=== PATIENT | female | born 1970 | race Caucasian/White ===

== ENCOUNTER 2017-11-03 19:00 | Emergency (ER) | payer BC ==
[2017-11-03 20:12] VITALS: BP 101/64
[2017-11-03] MEDS ORDERED: Cephalexin CAP* 500 MG PO ONE (20:45)
--- NOTE | 2017-11-03 20:54 | UC ---
Ear Complaint HPI - HPI Summary HPI Summary: THREE DAYS OF WORSENING COUGH, SORE THROAT AND RIGHT EAR PAIN. HISTORY OF FREQUENT OTITIS MEDIA AND SINUS INFECTIONS. - History of Current Complaint Chief Complaint: UCGeneralIllness Stated Complaint: THROAT,EAR COMPLAINT Time Seen by Provider: 11/03/17 20:39 Hx Obtained From: Patient Hx Last Menstrual Period: 5 yrs Onset/Duration: Gradual Onset, Lasting Days Severity Initially: Mild Severity Currently: Moderate Associated Signs/Symptoms: Positive: URI Symptoms - Allergies/Home Medications Allergies/Adverse Reactions: Allergies Allergy/AdvReac Type Severity Reaction Status Date / Time Morphine Allergy Severe lowers BP Verified 11/03/17 20:12 Adhesive Tape Allergy Hives Verified 11/03/17 20:12 Amoxicillin Allergy Rash Verified 11/03/17 20:12 Home Medications: Home Medications Aspirin [Aspirin 81 MG TAB] 81 mg PO DAILY 11/03/17 [History Confirmed 11/03/17] Ibuprofen TAB* [Motrin TAB* 600 MG] 600 mg PO Q8H PRN 11/03/17 [History Confirmed 11/03/17] Rosuvastatin Calcium [Crestor] 20 mg PO DAILY 11/03/17 [History Confirmed ] PMH/Surg Hx/FS Hx/Imm Hx Previously Healthy: Yes - Surgical History Surgical History: Yes Surgery Procedure, Year, and Place: Herniorrhaphy, 10/03/14, [facility]; Appendectomy , 08/07/14, [facility]; Mini ARC Bladder, 2010, [facility], Novasure Ablation, 2009, ; Tubal Ligation, 1997, [facility] - Family History Known Family History: Positive: Cardiac Disease, Hypertension - Social History Occupation: Employed Full-time Lives: With Family Alcohol Use: Rare Substance Use Type: None Smoking Status (MU): Heavy Every Day Tobacco Smoker Type: Cigarettes Amount Used/How Often: 1 PPD Length of Time of Smoking/Using Tobacco: 34 Years Have You Smoked in the Last Year: Yes Household Exposure Type: Cigarettes Cessation Counseling: Patient Advised to Stop - Immunization History Most Recent Influenza Vaccination: Not the 2014/2015 Season Review of Systems Constitutional: Negative Skin: Negative Eyes: Negative ENT: Ear Ache, Sinus Congestion, Sinus Pain/Tenderness Respiratory: Cough Cardiovascular: Negative Gastrointestinal: Negative Genitourinary: Negative Motor: Negative Neurovascular: Negative Musculoskeletal: Negative Neurological: Negative Psychological: Negative Is Patient Immunocompromised?: No All Other Systems Reviewed And Are Negative: Yes Physical Exam Triage Information Reviewed: Yes Appearance: No Pain Distress, Well-Nourished, Ill-Appearing - MILDLY Vital Signs: Initial Vital Signs Temp 98.4 F 11/03/17 20:08 Pulse 69 11/03/17 20:08 Resp 17 11/03/17 20:08 BP 101/64 11/03/17 20:08 Pulse Ox 98 11/03/17 20:08 Vital Signs Reviewed: Yes Eye Exam: Normal ENT: Positive: Hearing grossly normal, Pharynx normal, Nasal congestion, TM red - RIGHT TM Dental Exam: Normal Neck exam: Normal Respiratory Exam: Normal Respiratory: Positive: Chest non-tender, Lungs clear, Normal breath sounds, No respiratory distress Cardiovascular Exam: Normal Cardiovascular: Positive: RRR, No Murmur, Pulses Normal Abdominal Exam: Normal Abdomen Description: Positive: Nontender, No Organomegaly Musculoskeletal Exam: Normal Neurological Exam: Normal Psychological Exam: Normal Skin Exam: Normal Ear Complaint Course/Dx - Differential Dx/Diagnosis Differential Diagnosis/HQI/PQRI: Otitis Externa, Otitis Media, URI Provider Diagnoses: RIGHT OTITIS MEDIA; SINUSITIS Discharge - Discharge Plan Condition: Stable Disposition: HOME Prescriptions: Cephalexin CAP* [Keflex CAP*] 500 mg PO TID #30 cap Patient Education Materials: Sinusitis (ED), Otitis Media (ED) Referrals: Alyssa Burns PA [Primary Care Provider] -
== END 2017-11-03 20:51 | disposition home or self-care (01) ==
LOC: UCCORT 19:00
DX: H66.91 Otitis media, unspecified, right ear (principal); J32.9 Chronic sinusitis, unspecified; Z88.1 Allergy status to other antibiotic agents; Z88.5 Allergy status to narcotic agent; Z91.048 Other nonmedicinal substance allergy status; F17.210 Nicotine dependence, cigarettes, uncomplicated
CPT/HCPCS: 99212; A9270-GY; G0463

== ENCOUNTER 2018-02-28 07:02 | Emergency (ER) | payer BC ==
[2018-02-28 07:20] VITALS: BP 122/67
[2018-02-28] MEDS ORDERED: cefTRIAXone VIAL(*) 1,000 MG VIAL IM ONE (07:51)
[2018-02-28] MEDS ORDERED: Lidocaine 1% MPF* 2 ML VIAL INJ ONE (07:52)
--- NOTE | 2018-02-28 07:58 | UC ---
Skin Complaint HPI - HPI Summary HPI Summary: Lip swelling and facial pain on the left. On monday she had a small "pimple" and then this has progressed to lip swelling and facial swelling. She is a DM with fairly well controlled sugars per patient. She has never had MRSA or skin infections per patient. No fevers or chills. - History of Current Complaint Chief Complaint: UCSkin Time Seen by Provider: 02/28/18 07:47 Stated Complaint: LEFT LIP/FACE COMPLAINT Hx Obtained From: Patient Hx Last Menstrual Period: 5 yr Onset/Duration: Gradual Onset, Lasting Days Skin Exposure Onset/Duration: Days Ago Onset Severity: Mild Current Severity: Moderate Pain Intensity: 10 Location: Discrete, Face Character: Swelling, Pain, Redness, Raised, Painful Aggravating Factor(s): Touch Alleviating Factor(s): Nothing Associated Signs & Symptoms: Positive: Tenderness. Negative: Nausea, Vomiting, Numbness, Shivering, Fever, Chills, Cough - Allergy/Home Medications Allergies/Adverse Reactions: Allergies Allergy/AdvReac Type Severity Reaction Status Date / Time Adhesive Tape Allergy Hives Verified 02/28/18 07:13 amoxicillin Allergy Rash Verified 02/28/18 07:13 atorvastatin [From Lipitor] Allergy Muscle Ache Verified 02/28/18 07:13 morphine AdvReac See Comment Verified 02/28/18 07:13 Home Medications: Home Medications FLUoxetine CAP* [PROzac CAP*] 40 mg PO DAILY 02/28/18 [History Confirmed ] Famotidine TAB* [Pepcid 20 MG TAB*] 40 mg PO QPM 02/28/18 [History Confirmed 03/14] Linaclotide [Linzess] 145 mcg PO QAM 02/28/18 [History Confirmed 02/28/18] Review of Systems Skin: Other - tender skin. All Other Systems Reviewed And Are Negative: Yes PMH/Surg Hx/FS Hx/Imm Hx Previously Healthy: No - DM. - Surgical History Surgical History: Yes Surgery Procedure, Year, and Place: Herniorrhaphy, 10/03/14, [facility]; Appendectomy , 08/07/14, [facility]; Mini ARC Bladder, 2010, [facility], Novasure Ablation, 2009, ; Tubal Ligation, 1997, [facility] - Family History Known Family History: Positive: Cardiac Disease, Hypertension - Social History Alcohol Use: Occasionally Substance Use Type: None Smoking Status (MU): Heavy Every Day Tobacco Smoker Type: Cigarettes Amount Used/How Often: 1 PPD Length of Time of Smoking/Using Tobacco: 34 Years Have You Smoked in the Last Year: Yes Household Exposure Type: Cigarettes - Immunization History Most Recent Influenza Vaccination: Not the Season Physical Exam Triage Information Reviewed: Yes Appearance: Well-Appearing, No Pain Distress, Well-Nourished Vital Signs: Initial Vital Signs Temp 97.9 F 02/28/18 07:14 Pulse 63 02/28/18 07:14 Resp 20 02/28/18 07:14 BP 122/67 02/28/18 07:14 Pulse Ox 99 02/28/18 07:14 Vital Signs Reviewed: Yes Eyes: Positive: Conjunctiva Clear ENT: Positive: Pharynx normal - edentulous but no gum or jaw swelling. Neck: Positive: Supple, Nontender, No Lymphadenopathy Respiratory: Positive: Lungs clear, Normal breath sounds, No respiratory distress, No accessory muscle use. Negative: Respiratory distress, Decreased breath sounds, Accessory muscle use, Crackles, Rhonchi, Stridor, Wheezing Cardiovascular: Positive: No Murmur, Pulses Normal, Brisk Capillary Refill Abdomen Description: Positive: No Organomegaly, Soft. Negative: Distended, Guarding Musculoskeletal: Positive: Strength Intact, ROM Intact, No Edema Neurological: Positive: Alert, Muscle Tone Normal. Negative: Fatigued Skin Exam: Other - Left upper lip swelling and tenderness along with some pinkness of the maxilla. There is no induration or swelling of the skin of the maxilla. Course/Dx - Course Course Of Treatment: Cellulitis. She agrees to return for any worsening. - Diagnoses Provider Diagnoses: left facial cellulitis. Discharge - Sign-Out/Discharge Documenting (check all that apply): Discharge - Discharge Plan Condition: Good Disposition: HOME Prescriptions: Sulfamethox/Trimethoprim DS* [Bactrim DS 800/160 TAB*] 2 tab PO BID #40 tab Patient Education Materials: Cellulitis (ED) Referrals: Alyssa Burns PA [Primary Care Provider] - - Billing Disposition and Condition Condition: GOOD Disposition: HOME
== END 2018-02-28 08:29 | disposition home or self-care (01) ==
LOC: UCCORT 07:02
DX: L03.211 Cellulitis of face (principal); E11.9 Type 2 diabetes mellitus without complications; F17.210 Nicotine dependence, cigarettes, uncomplicated; Z88.3 Allergy status to other anti-infective agents; Z88.5 Allergy status to narcotic agent; Z88.8 Allergy status to other drugs, medicaments and biological substances
CPT/HCPCS: 96372; 99212; G0463; J0696

== ENCOUNTER 2018-05-25 07:50 | Emergency (ER) | payer BC ==
[2018-05-25 08:09] VITALS: BP 128/75
--- NOTE | 2018-05-25 08:18 | UC ---
Complaint Female HPI - HPI Summary HPI Summary: Patient presents to with complaints of urinary frequency, urgency, and dysuria since yesterday. Patient with history of UTI states this feels similar. Patient has taken Pyridium and 7:00 this morning with mild improvement. Patient is followed closely by her primary for recurrent UTIs. Patient denies nausea vomiting. No fevers or chills. No back pain. No lightheadedness. Patient has not taken any other analgesia. Patient is not on prophylactically [place]. Patient states her last antibiotic was greater than 6 months ago. Patient denies possibility of . Patient denies vaginal discharge itching or odor. Patient's medications reviewed this visit. - History Of Current Complaint Chief Complaint: UCGU Stated Complaint: UTI SYMPTOMS Time Seen by Provider: 05/25/18 08:15 Hx Obtained From: Patient Hx Last Menstrual Period: pt had an ablasion in 2011 and does not get a menses ?: No Onset/Duration: Gradual Onset, Lasting Hours Timing: Constant Severity Initially: Moderate Severity Currently: Moderate Pain Intensity: 8 Pain Scale Used: 0-10 Numeric - Allergies/Home Medications Allergies/Adverse Reactions: Allergies Allergy/AdvReac Type Severity Reaction Status Date / Time Adhesive Tape Allergy Hives Verified 05/25/18 08:09 amoxicillin Allergy Rash Verified 05/25/18 08:09 atorvastatin [From Lipitor] Allergy Muscle Ache Verified 05/25/18 08:09 morphine AdvReac See Comment Verified 05/25/18 08:09 Home Medications: Home Medications Phenazopyridine TAB* [Pyridium 100 mg TAB*] 100 mg PO TID PRN 05/25/18 [History Confirmed 05/25/18] PMH/Surg Hx/FS Hx/Imm Hx Previously Healthy: Yes GI/ History: Other Other GI/ History: recurrent UTIs - Surgical History Surgical History: Yes Surgery Procedure, Year, and Place: Herniorrhaphy, 10/03/14, [facility]; Appendectomy , 08/07/14, [facility]; Mini ARC Bladder, 2010, [facility], Novasure Ablation, 2009, ; Tubal Ligation, 1997, [facility] - Family History Known Family History: Positive: Cardiac Disease, Hypertension - Social History Occupation: Employed Full-time Lives: With Family Alcohol Use: Occasionally Substance Use Type: None Smoking Status (MU): Heavy Every Day Tobacco Smoker Type: Cigarettes Amount Used/How Often: 1 PPD Length of Time of Smoking/Using Tobacco: since age 13 Have You Smoked in the Last Year: Yes Household Exposure Type: Cigarettes - Immunization History Most Recent Influenza Vaccination: Not the 2014/2015 Season Review of Systems Constitutional: Negative Genitourinary: Dysuria, Frequency, Urgency All Other Systems Reviewed And Are Negative: Yes Physical Exam - Summary Physical Exam Summary: Vital Signs Reviewed: Yes A+Ox3, no distress Eyes: Conjunctiva Clear ENT: Hearing grossly normal neck: supple Respiratory: Positive: No respiratory distress, No accessory muscle use Cardiovascular: skin color reflect adequate perfusion abd: soft + BS no guarding, no rebound mild suprapubic discomfort no CVA b/l Musculoskeletal Exam: LEAHY x 4 without difficulty Neurological: Positive: Alert, ambulatory without difficulty Psychological: Positive: Normal Response To Family Skin: Positive: no rash, no ecchymosis Triage Information Reviewed: Yes Vital Signs: Initial Vital Signs Temp 97.8 F 05/25/18 08:00 Pulse 71 05/25/18 08:00 Resp 16 05/25/18 08:00 BP 128/75 05/25/18 08:00 Pulse Ox 98 05/25/18 08:00 Complaint Female Dx - Course Course Of Treatment: Patient presents with urinary symptoms including dysuria frequency and urgency. Patient has a current UTIs. Patient took Pyridium so unable to send urinalysis. Will send urine culture. Will start Macrobid. She has Pyridium. Patient requesting Diflucan for antibiotic related disinfection. - Differential Dx/Diagnosis Provider Diagnoses: dysuria Discharge - Sign-Out/Discharge Documenting (check all that apply): Discharge/Admit/Transfer - Discharge Plan Condition: Stable Disposition: HOME Prescriptions: Fluconazole [Diflucan 150 MG (NF)] 150 mg PO ONCE PRN #2 tab PRN Reason: vaginal yeast infection Nitrofurantoin Monohyd/M-Cryst [Macrobid 100 mg Capsule] 100 mg PO BID #14 cap Patient Education Materials: Urinary Tract Infection in Women (ED) Referrals: Alyssa Burns PA [Primary Care Provider] - Additional Instructions: - stay well hydrated - drink plenty of non-alcoholic, non caffinated beverages - your urine will be further tested - if you require any changes to your treatment, we will contact you - this usually take 2 days - Contact your primary doctor to arrange a follow-up appointment next week. Contact your doctor or return with questions or concerns - Take your antibiotics exactly as prescribed until gone - Take pyridium as prescribed for discomfort. This will make your urine blaze orange - this is normal - Okay to alternate ibuprofen (Advil, Motrin) and Tylenol every 3 hours for pain. Take with food - you have been given a prescription for diflucan - okay to use as needed for yeast infection - Call your doctor or return with questions or concerns - Billing Disposition and Condition Condition: STABLE Disposition: Home
--- NOTE | 2018-05-27 07:14 | UC ---
- Progress Note Progress Note: + E. Coli Pt on Macrobid await sensitivity Ljj 05/27/18 Discharge - Sign-Out/Discharge Documenting (check all that apply): Post-Discharge Follow Up - Discharge Plan Condition: Stable Disposition: HOME Prescriptions: Fluconazole [Diflucan 150 MG (NF)] 150 mg PO ONCE PRN #2 tab PRN Reason: vaginal yeast infection Nitrofurantoin Monohyd/M-Cryst [Macrobid 100 mg Capsule] 100 mg PO BID #14 cap Patient Education Materials: Urinary Tract Infection in Women (ED) Referrals: Alyssa Burns PA [Primary Care Provider] - Additional Instructions: - stay well hydrated - drink plenty of non-alcoholic, non caffinated beverages - your urine will be further tested - if you require any changes to your treatment, we will contact you - this usually take 2 days - Contact your primary doctor to arrange a follow-up appointment next week. Contact your doctor or return with questions or concerns - Take your antibiotics exactly as prescribed until gone - Take pyridium as prescribed for discomfort. This will make your urine blaze orange - this is normal - Okay to alternate ibuprofen (Advil, Motrin) and Tylenol every 3 hours for pain. Take with food - you have been given a prescription for diflucan - okay to use as needed for yeast infection - Call your doctor or return with questions or concerns - Billing Disposition and Condition Condition: STABLE Disposition: Home
== END 2018-05-25 08:36 | disposition home or self-care (01) ==
LOC: UCCORT 07:50
DX: Z16.11 Resistance to penicillins (principal); Z16.29 Resistance to other single specified antibiotic; R30.0 Dysuria; Z88.5 Allergy status to narcotic agent; Z88.0 Allergy status to penicillin; Z88.8 Allergy status to other drugs, medicaments and biological substances; Z87.440 Personal history of urinary (tract) infections; F17.210 Nicotine dependence, cigarettes, uncomplicated; B96.20 Unspecified Escherichia coli [E. coli] as the cause of diseases classified elsewhere
CPT/HCPCS: 87077; 87086; 87186; 99212; G0463

== ENCOUNTER 2019-07-03 13:44 | Emergency (ER) | payer BC ==
--- OUTSIDE RECORDS SUMMARY | 2019-07-03 13:57 | XMS REPORT | Continuity of Care Document ---
:1970 External Reference #:[id number] Author Name Dorene Myers Care Team Providers Name Role Alyssa Huang RPA Primary Care Physician Unavailable Payers Date Identification Numbers Payment Provider Subscriber Policy Number: [id number] [facility] Yaquelin Gillespie PayID: [id number] [address] [address] [place] [id number] Problems Active Problems Provider Date Diabetes mellitus Alyssa [place], [place] Onset: 03/01/2019 Note: noted 2012, gestational DM 1998 Cerebrovascular accident Alyssa [place], PA Onset: 03/01/2019 Note: tPA 08/2017 History of cerebrovascular accident without Alyssa [place], [place] Onset: 03/01 residual deficits Note: 08/2017 Obesity Alyssa [place], PA Onset: 03/01/2019 Mixed hyperlipidemia Alyssa [place], PA Onset: 03/01/2019 Steatosis of liver Alyssa [place], PA Onset: 03/01/2019 Note: elevated transaminases variable Gastritis Alyssa [place], PA Onset: 03/01/2019 Esophagitis Alyssa [place], PA Onset: 03/01/2019 Irritable bowel syndrome Alyssa [place], PA Onset: 03/01/2019 Umbilical hernia Alyssa [place], PA Onset: 03/01/2019 Hemangioma of liver Alyssa [place], PA Onset: 03/01/2019 Note: (+) scan 2012 Gastroesophageal reflux disease Alyssa [place], PA Onset: 03/01/2019 Polyp of colon Alyssa [place], PA Onset: 03/01/2019 Note: hyperplastic 2014 Dysthymia Alyssa [place], PA Onset: 03/01/2019 Vitamin D deficiency Alyssa [place], PA Onset: 03/01/2019 Cigarette smoker Alyssa [place], PA Onset: 03/01/2019 Chronic obstructive lung disease Alyssa [place], [place] Onset: 03/01/2019 Bladder muscle dysfunction - overactive Alyssa SHIREEN Burns Onset: 2018 Neck pain SHIREEN Sloan Onset: 04/18/2019 Degenerative joint disease involving multiple Alyssa BellevilleSHIREEN Onset: joints Note: knees, cervical spine Family History Date Family Member(s) Observation Comments Father Deep Venous Thrombosis (DVT) Father Hypercholesterolemia Mother Diabetes Mother Hypercholesterolemia Mother Thyroid Disease Social History Type Date Description Comments Sex Unknown Lives With Boyfriend Tobacco Use Start: Unknown 01/28 ppd ETOH Use Occasionally consumes alcohol Tobacco Use Start: Unknown Patient is a current smoker, smokes every day Smoking Status Reviewed: 05/16/19 Patient is a current smoker, smokes every day Exercise Type/Frequency Exercises sporadically walking Allergies, Adverse Reactions, Alerts Active Allergies Reaction Severity Comments Date Amoxicillin pruritis 02/18/2019 Penicillins Itching 02/18/2019 Adhesive contact dermatitis 02/18/2019 Morphine 02/18/2019 Acetaminophen / Caffeine 02/18/2019 NSAIDS dyspepsia 02/18/2019 Atorvastatin myalgias 02/18/2019 Pioglitazone vision changes 02/18/2019 Medications Active Medications SIG Qnty Indications Ordering Date Provider Doxycycline 1 by mouth twice a 20caps J01.90 06/11/2019 Monohydrate day MD Thang 100mg Capsules Vitamin D-1000 take four 90tabs 05/20/2019 Maximum Strength capsule/tablet daily MD Thang by mouth 1000Unit Tablets Gabapentin 2 tabs by mouth three 05/16/2019 300mg times a day MD Thang Capsules NicoretBob Soares, 05/15/2019 4mg Gum Tramadol HCL 1 to 2 tablets twice 30tabs M54.2 04/12/2019 50mg a day or three times MD Thang Tablets a day as needed pain Trulicity inject 1.5mg 6ml 03/15/2019 subcutaneously once MD Thang 1.5mg/0.5ML per week Solution Pen-Inject Nebulizer 1 unit nebulization 1units 02/18/2019 Kit/Tubing/Mouthpie every 4- 6 hours as MD Thang ce needed Kit Pantoprazole Sodium 1 tab by mouth twice 180tabs 02/18/2019 a day MD Thang 40mg Tablets DR Oxybutynin Chloride 1-2 tabs by mouth 180tabs 02/18/2019 ER every day MD Thang 15mg Tablets ER 24HR Famotidine 1 by mouth every day 02/18/2019 40mg MD Thang Tablets Ventolin HFA 2 puffs every 4 hours 18units 02/18/2019 as needed MD Thang 108(90Base) mcg/Act Aerosol Nateglinide 1 by mouth three 90tabs 02/18/2019 120mg times a day MD Thang Tablets Fluoxetine HCL 1 by mouth every day 90caps 02/18/2019 40mg MD Thang Capsules Benzonatate one three times a day 30caps 02/18/2019 200mg as needed cough MD Thang Capsules Aspirin 81 1 by mouth every day 30tabs 02/18/2019 81mg MD Thang Tablets Rosuvastatin 1 by mouth every day 02/18/2019 Calcium MD Thang 40mg Tablets Metformin HCL take one tablet by 180tabs 02/18/2019 mouth twice a day MD Thang 1000mg Tablets Xyzal Allergy 24HR 02/18/2019 MD Thang 5mg Tablets History Medications Gabapentin Take 1 AT Bedtime 270Caps SHIREEN Sloan 05/03/2019 - 300mg Capsules X5 Nights,1 Twice 05/16/2019 A Day X2 Weeks,And If Needed 1 Capsule 3 Times A Day Clotrimazole dissolve one 70units B37.9 05/02/2019 - 10mg Lozenges marvin in mouth Desir, 05/16/2019 5x/day Acetaminophen-Codeine one to 2 tablets 30tabs M54.2 04/12/2019 - #3 every 6 hours as Desir, 04/12/2019 300-30mg Tablets needed for pain MD and cough Gabapentin 2 caps po three 180caps 04/11/2019 - 300mg Capsules times a day Desir, 05/02/2019 Nitrofurantoin Monohyd 1 by mouth twice 20caps M62.838 04/10/2019 - Macro a day Desir, 04/30/2019 100mg Capsules Cyclobenzaprine HCL 1-2 tabs by mouth 14tabs M54.2 Benny 03/01/2019 - 5mg three times a day Desir, 04/24/2019 Tablets as needed muscle spasm Trulicity inject 0.75mg 2ml Benny 02/18/2019 - 0.75mg/0.5ML once a week Desir, 03/15/2019 Solution Pen-Inject Vital Signs Date Vital Result Comment 06/11/2019 9:09am Weight 239.06 lb BP Systolic Sitting 124 mmHg BP Diastolic Sitting 60 mmHg Body Temperature 97.4 F 05/16/2019 9:50am Height 63 inches 5'3" Weight 241.44 lb Heart Rate 90 /min BP Systolic Sitting 122 mmHg BP Diastolic Sitting 70 mmHg O2 % BldC Oximetry 97 % BMI (Body Mass Index) 42.8 kg/m2 05/10/2019 11:20am Weight 234.56 lb BP Systolic Sitting 130 mmHg BP Diastolic Sitting 78 mmHg 05/02/2019 12:00pm Height 67.9 inches 5'7.90" Weight 229.38 lb Heart Rate 78 /min BP Systolic Sitting 130 mmHg BP Diastolic Sitting 74 mmHg Body Temperature 97.1 F O2 % BldC Oximetry 94 % BMI (Body Mass Index) 35.0 kg/m2 04/30/2019 8:30am Height 67.9 inches 5'7.90" Weight 233.12 lb BP Systolic Sitting 128 mmHg BP Diastolic Sitting 76 mmHg BMI (Body Mass Index) 35.5 kg/m2 04/18/2019 8:13am Weight 234.50 lb BP Systolic Sitting 126 mmHg BP Diastolic Sitting 60 mmHg 04/12/2019 9:23am Weight 235.00 lb BP Systolic Sitting 128 mmHg BP Diastolic Sitting 70 mmHg 04/10/2019 11:01am Weight 238.12 lb BP Systolic Sitting 126 mmHg BP Diastolic Sitting 70 mmHg Body Temperature 98.5 F 03/01/2019 9:27am Height 67.9 inches 5'7.90" Weight 234.25 lb Heart Rate 78 /min BP Systolic Sitting 122 mmHg BP Diastolic Sitting 78 mmHg BMI (Body Mass Index) 35.7 kg/m2 Results Test Date Facility Test Result H/L Range Note Urine Culture And 05/16/2019 [facility] Urine Culture SEE RESULT 1, [address] [place] [address] [phone] Urine Culture And 04/30/2019 [facility] Urine Culture SEE RESULT 3, [address] [place] [address] [phone] Urine Culture And 04/10/2019 [facility] Urine Culture SEE RESULT 5, [address] [place] [address] [phone] Ua Routine 04/10/2019 [facility] Ua Specific 1.000 [place] Ua PH 5.0 Ua Color yellow Ua Appera clear Ua WBC neg Ua Protein neg Ua Glucose neg Ua Ketones neg Ua Bilirubin neg Ua Urobilinogen neg Ua Nitrite neg Ua Occult Blood neg Urine Culture And 03/01/2019 [facility] Urine Culture SEE RESULT 7, [address] [place] [address] [phone] Urine Microalbumin 03/01/2019 [facility] Ur Microalbumin < 15.0 mg/L [address] (mg/L) [place] [address] [phone] Urine Creatinine 48.26 mg/dL Urine Microalbumin/Creatinine TNP <31 10 Laboratory test 03/01/2019 [facility] Cytology SEE RESULT BELOW [address] [place] [address] [phone] 1 [id number] 2 SEE RESULT BELOW Name: YAQUELIN GILLESPIE : [address]: Alyssa IYER Acct: [id number] Unit: [id number] AGE: 48 Location: [facility] Re05/16/19 SEX: F Status: REG REF SPEC: [id number] SARANYA: 05/16/19-1030 [facility] DR: Alyssa IYER REQ: [id number] RECD: 05/16/19 STATUS: POONAM BUENO DR: Benny Desir MD _ [facility] ORDERED: Urine Culture COMMENTS: [id number] Procedure Result Reported Site Urine Culture Final 05/18/19- 1352 ML Mixed presley; possible contamination. Suggest resubmission. * ML - Main Lab . END OF REPORT DEPARTMENT OF PATHOLOGY, [address] [place] [address] Bob Alexander M.D. Director [facility] # [id number] SEE RESULT BELOW Name: YAQUELIN GILLESPIE : [address]: Khushbu IYER Acct: [id number] Unit: [id number] AGE: 48 Location: [facility] Re04/30/19 SEX: F Status: REG REF SPEC: [id number] SARANYA: 04/30/[address]: Khushbu IYER REQ: [id number] RECD: 04/30/19 STATUS: COMP _ SOURCE: URINE SPDESC: ORDERED: Urine Culture COMMENTS: [id number] Urine Source: Random Procedure Result Reported Site Urine Culture Final 05/01/19- 1136 ML Mixed presley; possible contamination. Suggest resubmission. * ML - Main Lab . END OF REPORT DEPARTMENT OF PATHOLOGY, [address] [place] [address] Bob Alexander M.D. Director [facility] # [id number] 5 [id number] SEE RESULT BELOW Name: YAQUELIN GILLESPIE : [address]: Khushbu IYER Acct: [id number] Unit: [id number] AGE: 48 Location: [facility] Re04/10/19 SEX: F Status: REG REF SPEC: [id number] SARANYA: 04/10/19-[address]: Khushbu IYER REQ: [id number] RECD: 04/10/19 STATUS: COMP _ SOURCE: URINE SPDESC: ORDERED: Urine Culture COMMENTS: [id number] QUERIES: Urine Source: Random Procedure Result Reported Site Urine Culture Final 04/12/19- 801 ML Organism 1 ESCHERICHIA COLI [place] Count >100,000 (Many) CFU/ML 1. ESCHERICHIA COLI M.I.C. RX --------- ------ Ampicillin >=32 R Cefazolin <=4 S Cefepime <=1 S Ceftriaxone <=1 S Ciprofloxacin <=0.25 S Gentamicin <=1 S Levofloxacin <=0.12 S Meropenem <=0.25 S Nitrofurantoin <=16 S Tetracycline <=1 S Pipercillin/Tazobactam <=4 S Trimethoprim/Sulfamethoxazole <=20 S Amoxicillin/Clavulanic Acid 4 S Aztreonam <=1 S Contact the Microbiology Department for any additional antibiotic reporting. * ML - Main Lab . END OF REPORT DEPARTMENT OF PATHOLOGY, [address] [place] [address] Bob Alexander M.D. Director [facility] # [id number] SEE RESULT BELOW Name: YAQUELIN GILLESPIE Humphrey : [address]: Alyssa IYER Acct: [id number] Unit: [id number] AGE: 48 Location: [facility] Re03/01/19 SEX: F Status: REG REF SPEC: [id number] SARANYA: 03/01/19-[address]: Alyssa IYER REQ: [id number] RECD: 03/01/19 STATUS: POONAM BUENO DR: Benny Desir MD _ SOURCE: URINE SPDESC: ORDERED: Urine Culture COMMENTS: [id number] QUERIES: Urine Source: Random Procedure Result Reported Site Urine Culture Final 03/02/19- 1318 ML No growth of clinically significant organisms * ML - Main Lab . END OF REPORT DEPARTMENT OF PATHOLOGY, [address] [place] [address] Bob Alexander M.D. Director [facility] # [id number] 9 [id number] Unable to calculate due to low microalbumin 11 SEE RESULT BELOW Name: YAQUELIN GILLESPIE : [address]: Alyssa IYER Acct: [id number] Unit: [id number] AGE: 48 Location: [facility] Re03/01/19 SEX: F Status: REG REF SPEC: [id number] SARANYA: 03/01/19-[address]: Alyssa IYER REQ: [id number] RECD: 03/01/19 STATUS: SOUT _ ORDERED: TP IMAGE ANALYS, HPV/Thin Prep COMMENTS: [id number] Negative for Intraepithelial lesion or Malignancy Date Time Test Result Flag (u) Normal Range 03/01/19 1058 @ HPV RNA Negative Negative @ @ The high-risk HPV types detected by the assay include: 16, @ 18, 31, 33, 35, 39, 45, 51, 52, 56, 58, 59, 66, and 68. A. Ectocervical/Endocervical Specimen Adequacy: Satisfactory of evaluation Transformation zone component not identified Patient Information: HPV: High risk HPV RNA testing regardless of pap results. Actual Specimen Date: 03/01/19 LMP If Unknown: 2012 Spec Date if unknown: 03/2018 ?: N Post Menopausal?: N Hysterectomy?: N Previous Abnormal Pap Smears?:N Other Pertinent History: Prior Elsewhere Signed by and Reported on: DOUG Lei(ASCP) [id number] This Pap test was evaluated with the assistance of the Carbon VoyagePrep Test Imaging System. Due to cytologic findings at the linux unix engineer microscope, comprehensive manual rescreening by a Estimate Clerk may be required. The Pap Smear is a screening test designed to aid in the detection of premalignant and malignant conditions of the uterine cervix. It is not a diagnostic procedure and should not be used as the sole means of detecting cervical cancer. Both false- positive and false- negative reports do occur. Depending on your risk status, a Pap smear should be obtained and evaluated every 1-3 years. END OF REPORT DEPARTMENT OF PATHOLOGY, [address] [place] [address] Bob Alexander M.D. Director [facility] # [id number] Procedures Date Code Description Status 04/15/2019 [id number] Mammogram Completed 12/24/2018 [id number] Diabetic Retinal Eye Exam Completed 04/12/2018 [id number] Mammogram Completed 03/16/2017 [id number] Mammogram Completed 03/14/2016 [id number] Mammogram Completed 11/27/2014 [id number] Colonoscopy Completed Encounters Type Date Location Provider Dx Diagnosis Office Visit 05/16/2019 [facility] Primary Care Alyssa Z01.818 Encounter for other 9:30a SHIREEN Burns preprocedural examination M48.02 Spinal stenosis, cervical region M54.2 Cervicalgia E11.65 Type 2 diabetes mellitus with hyperglycemia J44.9 Chronic obstructive pulmonary disease, unspecified K21.9 Gastro-esophageal reflux disease without esophagitis R82.90 Unspecified abnormal findings in urine Office Visit 05/10/2019 11:15a [facility] Primary SHIREEN Sloan M47.22 Other spondylosis Care with radiculopathy, cervical region R20.8 Other disturbances of skin sensation M50.10 Cervical disc disorder w radiculopathy, unsp cervical region Office Visit 05/02/2019 11:30a [facility] Primary Alyssa B37.9 Candidiasis, Care SHIREEN Burns unspecified M48.02 Spinal stenosis, cervical region M47.22 Other spondylosis with radiculopathy, cervical region Office Visit 04/30/2019 8:45a [facility] Primary SHIREEN Sloan M50.10 Cervical disc Care disorder w radiculopathy, unsp cervical region M25.512 Pain in left shoulder N39.0 Urinary tract infection, site not specified R20.8 Other disturbances of skin sensation M48.00 Spinal stenosis, site unspecified Office Visit 04/24/2019 3:45p [facility] Primary SHIREEN Sloan M50.10 Cervical disc Care disorder w radiculopathy, unsp cervical region M25.512 Pain in left shoulder Office Visit 04/18/2019 8:30a [facility] Primary SHIREEN Sloan M50.10 Cervical disc Care disorder w radiculopathy, unsp cervical region M25.512 Pain in left shoulder M62.838 Other muscle spasm N39.0 Urinary tract infection, site not specified Office Visit 04/12/2019 9:30a [facility] Primary Care SHIREEN Sloan M62.838 Other muscle spasm M25.512 Pain in left shoulder M50.10 Cervical disc disorder w radiculopathy, unsp cervical region N39.0 Urinary tract infection, site not specified Office Visit 04/10/2019 11:00a [facility] Primary Care SHIREEN Sloan M25.512 Pain in left shoulder M54.2 Cervicalgia M62.838 Other muscle spasm R30.0 Dysuria Office Visit 03/01/2019 9:00a [facility] Primary Alyssa Z00.01 Encounter for Care SHIREEN Burns general adult medical exam w abnormal findings M54.2 Cervicalgia Z12.31 Encntr screen mammogram for malignant neoplasm of breast Z12.4 Encounter for screening for malignant neoplasm of cervix K58.0 Irritable bowel syndrome with diarrhea E11.65 Type 2 diabetes mellitus with hyperglycemia E78.5 Hyperlipidemia, unspecified R82.90 Unspecified abnormal findings in urine Plan of Treatment Future Appointment(s):09/10/2019 10:30 am - SHIREEN Archibald at [facility] Primary [facility]03/02/2020 8:15 am - SHIREEN Sloan at [facility]06/11/2019 - SHIREEN SloanJ06.9 Acute upper respiratory infection, [id number] Acute serous otitis media, right earJ01.90 Acute sinusitis, unspecifiedNew Medication: Doxycycline Monohydrate 100 mg - 1 by mouth twice a day
[2019-07-03 14:12] VITALS: BP 142/80
--- NOTE | 2019-07-03 14:35 | UC ---
Complaint Female HPI - HPI Summary HPI Summary: P presents with c/o urinary urgency and frequency and pelvic pressure X 3 days. - History Of Current Complaint Chief Complaint: UCGU Stated Complaint: URINARY COMPLAINT Time Seen by Provider: 07/03/19 13:55 Hx Obtained From: Patient Hx Last Menstrual Period: n/a ?: No Onset/Duration: Sudden Onset, Lasting Days, Still Present Timing: Constant Severity Initially: Mild Severity Currently: Moderate Pain Intensity: 10 Character: Dull, Burning Aggravating Factor(s): Urination Alleviating Factor(s): Nothing Associated Signs And Symptoms: Positive: Negative - Risk Factors Ectopic Risk Factor: Negative Ovarian Torsion Risk Factor: Negative - Allergies/Home Medications Allergies/Adverse Reactions: Allergies Allergy/AdvReac Type Severity Reaction Status Date / Time Adhesive Tape Allergy Hives Verified 05/25/18 08:09 amoxicillin Allergy Rash Verified 05/25/18 08:09 atorvastatin [From Lipitor] Allergy Muscle Ache Verified 05/25/18 08:09 morphine AdvReac See Comment Verified 05/25/18 08:09 Home Medications: Home Medications Dulaglutide [Trulicity] 1.5 mg SQ WEEKLY 07/03/19 [History Confirmed 07/03/19] Gabapentin CAP(*) [Neurontin 400 mg CAP(*)] 800 mg PO BID 07/03/19 [History Confirmed 07/03/19] Pumpkin Seed Extract/Soy Germ [Azo Bladder Control Capsule] 1 cap PO SEE INSTRUCTIONS PRN 07/03/19 [History Confirmed 07/03/19] PMH/Surg Hx/FS Hx/Imm Hx Previously Healthy: Yes Endocrine History: Diabetes Psychological History: Anxiety, Depression - Surgical History Surgical History: Yes Surgery Procedure, Year, and Place: Herniorrhaphy, 10/03/14, [facility]; Appendectomy , 08/07/14, [facility]; Mini ARC Bladder, 2010, [facility], Novasure Ablation, 2009, ; Tubal Ligation, 1997, [facility]; C 6-7 and fusion 05/24/19 - Family History Known Family History: Positive: Cardiac Disease, Hypertension - Social History Occupation: Employed Full-time Lives: With Family Alcohol Use: Occasionally Substance Use Type: None Smoking Status (MU): Heavy Every Day Tobacco Smoker Type: Cigarettes Amount Used/How Often: 1 PPD Length of Time of Smoking/Using Tobacco: since age 13 Have You Smoked in the Last Year: Yes Household Exposure Type: Cigarettes - Immunization History Most Recent Influenza Vaccination: Not the Season Review of Systems All Other Systems Reviewed And Are Negative: Yes Constitutional: Positive: Negative Skin: Positive: Negative Eyes: Positive: Negative ENT: Positive: Negative Respiratory: Positive: Negative Cardiovascular: Positive: Negative Gastrointestinal: Positive: Negative Genitourinary: Positive: Frequency, Urgency Motor: Positive: Negative Neurovascular: Positive: Negative Musculoskeletal: Positive: Negative Neurological: Positive: Negative Psychological: Positive: Negative Is Patient Immunocompromised?: No Physical Exam Triage Information Reviewed: Yes Appearance: Well-Appearing Vital Signs: Initial Vital Signs Temp 97.7 F 07/03/19 14:06 Pulse 95 07/03/19 14:06 Resp 20 07/03/19 14:06 BP 142/80 07/03/19 14:06 Pulse Ox 96 07/03/19 14:06 Vital Signs Reviewed: Yes Eye Exam: Normal ENT Exam: Normal Dental Exam: Normal Neck exam: Normal Respiratory Exam: Normal Cardiovascular Exam: Normal Abdominal Exam: Normal Musculoskeletal Exam: Normal Neurological Exam: Normal Psychological Exam: Normal Skin Exam: Normal Complaint Female Dx - Differential Dx/Diagnosis Differential Diagnosis/HQI/PQRI: Urinary Tract Infection Provider Diagnosis: UTI (urinary tract infection) Discharge - Sign-Out/Discharge Documenting (check all that apply): Patient Departure All imaging exams completed and their final reports reviewed: No Studies - Discharge Plan Condition: Stable Disposition: HOME Prescriptions: Nitrofurantoin Monohyd/M-Cryst [Macrobid 100 mg Capsule] 100 mg PO Q12H #10 cap Patient Education Materials: Urinary Tract Infection in Women (ED) Referrals: Alyssa Burns PA [Primary Care Provider] - If Needed - Billing Disposition and Condition Condition: STABLE Disposition: Home
--- NOTE | 2019-07-05 13:04 | UC ---
- Progress Note Progress Note: + E coli. Preliminary result. Taking nitrofurantoin. Sens pending. Course/Dx - Diagnoses Provider Diagnoses: UTI (urinary tract infection) Discharge - Sign-Out/Discharge Documenting (check all that apply): Post-Discharge Follow Up All imaging exams completed and their final reports reviewed: No Studies - Discharge Plan Condition: Stable Disposition: HOME Prescriptions: Nitrofurantoin Monohyd/M-Cryst [Macrobid 100 mg Capsule] 100 mg PO Q12H #10 cap Patient Education Materials: Urinary Tract Infection in Women (ED) Referrals: Alyssa Burns PA [Primary Care Provider] - If Needed - Billing Disposition and Condition Condition: STABLE Disposition: Home
== END 2019-07-03 14:40 | disposition home or self-care (01) ==
LOC: UCCORT 13:44
DX: N39.0 Urinary tract infection, site not specified (principal); B96.20 Unspecified Escherichia coli [E. coli] as the cause of diseases classified elsewhere; E11.9 Type 2 diabetes mellitus without complications; Z79.84 Long term (current) use of oral hypoglycemic drugs; F17.210 Nicotine dependence, cigarettes, uncomplicated
CPT/HCPCS: 81003; 87077; 87086; 87186; 99212; G0463

== ENCOUNTER 2020-03-24 16:43 | Emergency (ER) | payer BC ==
[2020-03-24 16:58] VITALS: BP 110/66
== END 2020-03-24 17:30 | disposition home or self-care (01) ==
LOC: UCCORT 16:43